=== PATIENT | male | born 1970 | race Caucasian/White ===

== ENCOUNTER 2022-09-21 15:36 | Inpatient (IN) | payer MEDICAID ==
[~2022-09-21] VITALS: Ht 170.2 cm; Wt 112.5 kg
[2022-09-21 15:45] VITALS: BP 141/96; PULSE 83; RESP 20; TEMP 98.6
[2022-09-21 16:31] LABS: BASOPHILS # (AUTO) 0.1 K/uL (0.00-0.22); BASOPHILS % (AUTO) 0.7 % (0.0-2.0); EOSINOPHILS # (AUTO) 0.3 K/uL (0-0.4); HEMATOCRIT 41.9 % (36-52); HEMOGLOBIN 14.2 g/dL (12.0-18.0); LYMPHOCYTES # (AUTO) 1.9 K/uL (2.0-11.5); LYMPHOCYTES % (AUTO) 22.1 % (20.5-51.1); MEAN CORPUSCULAR HEMOGLOBIN 28 pg (27-31); MEAN CORPUSCULAR HGB CONC 34 g/dL (33-37); MEAN CORPUSCULAR VOLUME 81.9 fL (80-94); MONOCYTES # (AUTO) 0.5 K/uL (0.8-1.0); NEUTROPHILS # (AUTO) 5.9 K/uL (1.8-7.7); NEUTROPHILS % (AUTO) 68.2 % (42.2-75.2); PLATELET COUNT (AUTO) 139 K/uL (140-450); RED BLOOD CELL COUNT(AUTO) 5.11 MIL/uL (4.20-6.10); RED CELL DISTRIBUTION WIDTH 15.6 % (11.6-13.7); WHITE BLOOD COUNT (AUTO) 8.7 K/uL (4.8-10.8)
[2022-09-21 16:49] LABS: ALBUMIN 3.7 g/dL (3.4-5.0); ANION GAP 11.2 (8-16); ASPARTATE AMINOTRANSFERASE 36 U/L (15-37); CARBON DIOXIDE 30.9 mmol/L (21-32); CHLORIDE 102 mmol/L (98-107); CREATININE 1.4 mg/dL (0.6-1.3); GFR ARICAN-AMERICAN 68 mL/min (>90); GLUCOSE 131 mg/dL (74-106); POTASSIUM 3.1 mmol/L (3.5-5.1); SODIUM SERUM 141 mmol/L (136-145); TOTAL BILIRUBIN 0.4 mg/dL (0.0-1.0); UREA NITROGEN, BLOOD 18 mg/dL (7-18)
--- NOTE | 2022-09-21 17:23 | NUR ---
PATIENT AMBULATED TO BED 5.
[2022-09-21] MEDS ORDERED: ASPIRIN 325 MG TAB PO ONE (17:35)
--- NOTE | 2022-09-21 17:42 | NUR ---
PLACED ON B/P, PULSE, MONITOR, PT DENIES CHEST PAIN AT THIS TIME, STATED RIGHT GROIN FEELS LIKE A LITTLE PINCH , SEEN AND EXAMINED BY ERMD.
[2022-09-21] MEDS ORDERED: NACL 0.9% 1,000 ML IV ONE (18:15)
[2022-09-21] MEDS ORDERED: NIFE30TE5 PO (18:20)
[2022-09-21] MEDS ORDERED: MORPHINE SULFATE 2 MG/ML SYR IVP PRN (18:30)
[2022-09-21] MEDS ORDERED: ATEN50TA8 PO (18:31)
--- NOTE | 2022-09-21 19:03 | NUR ---
TROP 174 ERMD AWARE
[2022-09-21] MEDS ORDERED: ONDANSETRON 4 MG/2 ML VIAL IM/IVP PRN (20:15)
[2022-09-21] MEDS ORDERED: DOCUSATE SODIUM 100 MG GELCAP PO PRN (20:15)
[2022-09-21] MEDS: NACL 0.9% 1,000 ML IV SCH ×2 (20:15→20:52)
[2022-09-21] MEDS ORDERED: ZOLPIDEM 5 MG TAB PO PRN (20:15)
[2022-09-21] MEDS ORDERED: HYDROcodone/APAP 7.5/325 MG 1 TAB PO PRN (20:15)
[2022-09-21] MEDS ORDERED: guaiFENesin DM 200/20 MG-10 ML 10 ML UDC PO PRN (20:15)
[2022-09-21] MEDS ORDERED: ACETAMINOPHEN 325 MG TAB PO PRN (20:15)
--- NOTE | 2022-09-21 20:19 | NUR ---
REPORT CALLED TO DASHA HAYWARD
--- NOTE | 2022-09-21 20:24 | NUR ---
Patient will be admitted to care of [facility]. Admited to TELE. Will go to [id number]. Belongings list completed. Report to SABINO HAYWARD.
[2022-09-21 20:26] VITALS: PULSE 74; PULSE 84; RESP 20; O2SAT 97
--- NOTE | 2022-09-21 20:26 | NUR ---
PT TRANSPORTED VIA GURNEY FROM ER. PT IS AAOX4 TAJIK SPEAKING BUT KNOWS SOME SERBIAN. PT IS ON RA NOT IN ANY DISTRESS. DENIES ANY PAIN. PT HAS IV ON LEFT AC 20 GAUGE. EDUCATED PT TRACTOR DRIVER TEAMSTER LIGHT SYSTEM AND ROOM ENVIRONMENT. POC DISCUSSED. WILL CONTINUE TO MONITOR THE PT.
[2022-09-21 20:38] LABS: PROTHROMBIN TIME 9.5 secs (10.8-13.4)
[2022-09-21 20:42] VITALS: BP 159/95; PULSE 83; PULSE 84; RESP 20; TEMP 98.9; O2SAT 97
[2022-09-21 20:43] LABS: FREE T4 (FREE THYROXINE) 0.97 ng/dL (0.76-1.46); MAGNESIUM 1.9 mg/dL (1.8-2.4); PHOSPHORUS 2.5 mg/dL (2.5-4.9); THYROID STIMULATING HORMONE 2.74 uIU/mL (0.34-3.74)
[2022-09-21] MEDS: amLODIPine 5 MG TAB PO SCH (20:46)
[2022-09-21] MEDS: POTASSIUM CHLORIDE 10 MEQ TABER PO PRN (21:17)
[2022-09-22] VITALS (7 sets, daily range): BP systolic 135–156; BP diastolic 67–93; PULSE 56–81; RESP 16–20; TEMP 97.1–98.4; O2SAT 96–100
[2022-09-22 00:10] LABS: BARBITURATE, URINE NEGATIVE ng/ml (NEG <=200); BENZODIAZEPINE, URINE NEGATIVE ng/mL (NEG <=200); CANNABINOID, URINE NEGATIVE ng/mL (NEG <=50); COCAINE, URINE NEGATIVE ng/mL (NEG <=300); OPIATE, URINE NEGATIVE ng/mL (NEG <=2000); PHENCYCLIDINE SCREEN,URINE NEGATIVE ng/mL (NEG <=25)
--- NOTE | 2022-09-22 00:31 | NUR ---
PT IS SLEEPING COMFORTABLY IN BED. NOT IN ANY DISTRESS. BREATHING EVEN AND UNLABORED. WILL CONTINUE TO MONITOR THE PT.
[2022-09-22 02:19] LABS: APPEARANCE,URINE CLEAR (CLEAR); BILIRUBIN,URINE NEGATIVE (NEGATIVE); BLOOD, URINE NEGATIVE (NEGATIVE); COLOR,URINE YELLOW (YELLOW); LEUKOCYTE ESTERASE ,URINE NEGATIVE (NEGATIVE); NITRITE, URINE NEGATIVE (NEGATIVE); PH,URINE 6.5 (5.0-9.0); UGLUCOSE NEGATIVE (NEGATIVE)
[2022-09-22] MEDS: NACL 0.9% 1,000 ML IV SCH ×2 (04:16→13:43)
--- NOTE | 2022-09-22 04:20 | NUR ---
IVF CHANGED. PT HAS NO COMPLAINS RIGHT NOW. DENIES ANY CHEST PAIN. WILL CONTINUE TO MONITOR THE PT.
[2022-09-22 06:35] LABS: ANION GAP 11.3 (8-16); CARBON DIOXIDE 29.8 mmol/L (21-32); CREATININE 1.1 mg/dL (0.6-1.3); POTASSIUM 3.1 mmol/L (3.5-5.1)
--- NOTE | 2022-09-22 07:14 | NUR ---
ENDORSED PT TO DAY SHIFT NURSE FOR CONTINUITY OF CARE. PT IS STABLE.
--- NOTE | 2022-09-22 07:15 | NUR ---
RECEIVED PT FROM FACILITY MANAGER HISTOLOGY NURSE FOR CONTINUITY OF CARE. PT IS IN BED AWAKE, AOX4. ABLE TO VERBALIZE NEEDS. RESPIRATIONS ARE EVEN AND UNLABORED ON RA. SKIN IS WARM AND DRY. IV ON THE LAC 20G INFUSING NS @125. CALL LIGHT WITHIN REACH. ALL SAFETY PRECAUTIONS IN PLACE.
[2022-09-22 07:51] LABS: BASOPHILS % (AUTO) 0.5 % (0.0-2.0); EOSINOPHILS # (AUTO) 0.3 K/uL (0-0.4); EOSINOPHILS % (AUTO) 3.8 % (0.0-4.0); HEMATOCRIT 40.7 % (36-52); HEMOGLOBIN 13.5 g/dL (12.0-18.0); LYMPHOCYTES # (AUTO) 2.7 K/uL (2.0-11.5); LYMPHOCYTES % (AUTO) 32.2 % (20.5-51.1); MEAN CORPUSCULAR HEMOGLOBIN 27 pg (27-31); MEAN CORPUSCULAR HGB CONC 33 g/dL (33-37); MONOCYTES # (AUTO) 0.6 K/uL (0.8-1.0); MONOCYTES % (AUTO) 6.7 % (1.7-9.3); NEUTROPHILS # (AUTO) 4.7 K/uL (1.8-7.7); NEUTROPHILS % (AUTO) 56.8 % (42.2-75.2); PLATELET COUNT (AUTO) 135 K/uL (140-450); RED BLOOD CELL COUNT(AUTO) 4.91 MIL/uL (4.20-6.10); WHITE BLOOD COUNT (AUTO) 8.3 K/uL (4.8-10.8)
[2022-09-22] MEDS: PANTOPRAZOLE 40 MG TABEC PO SCH (08:30)
[2022-09-22] MEDS: amLODIPine 5 MG TAB PO SCH (08:30)
--- NOTE | 2022-09-22 08:31 | NUR ---
ADMINISTERED ALL SCHEDULED MEDS. PT TOLERATING WELL.
--- NOTE | 2022-09-22 08:47 | NUR ---
PATIENT HAS BEEN SCREENED AND CATEGORIZED LOW NUTRITION RISK. PATIENT WILL BE SEEN WITHIN 7 DAYS OF ADMISSION. 09/28/[address]
--- NOTE | 2022-09-22 10:31 | NUR ---
DC [age] YRS OLD MALE PATIENT WAS ADMITTED FROM HOME WITH A DX OF ELEVATED TROPONIN. PATIENT HAS A HX OF HTN, KIDNEY STONE AND TIBIAL FRACTURE. TROP LEVEL 166,174,155 AND 163. US SCROTUM SHOWED SOFT TISSUE MASS. RAPID COVID TEST NEGATIVE. . ADMINISTERED IVF, AND CONTINUED HOME MEDS. CONSULTED WITH CARDIO AND NEPHRO. DC PLAN TO GO HOME WHEN STABLE CM TO FOLLOW
[2022-09-22] MEDS: FENOFIBRATE 48 MG TAB PO SCH (10:40)
[2022-09-22] MEDS: POTASSIUM CHLORIDE 10 MEQ TABER PO PRN (10:40)
[2022-09-22] MEDS ORDERED: MORPHINE SULFATE 2 MG/ML SYR IVP PRN (11:05)
--- NOTE | 2022-09-22 19:19 | NUR ---
RECEIVED REPORT FROM DAY SHIFT NURSE FOR CONTINUITY OF CARE. PT IS AWAKE, ALERT AND ORIENTED X4, MARTIN[place]QUA[place] SPEAKING BUT DOES UNDERSTAND [place]. CURRENTLY ON ROOM AIR WITH NO APPARENT SIGNS OF ACUTE DISTRESS NOTED. PATIENT IS AMBULATORY AND CONTINENT. IV SITE LOCATED AT LEFT AC 20 GAUGE, RUNNING NS @ 125 ML/HR. WILL MONITOR THROUGHOUT SHIFT.
--- NOTE | 2022-09-22 19:23 | NUR ---
ENDORSED PT TO MARKETING TRAFFIC COORDINATOR NURSE FOR CONTINUITY OF CARE. PT IS STABLE.
[2022-09-23] VITALS: BP 160/93; PULSE 68; PULSE 70; RESP 18; TEMP 96.9; O2SAT 97
--- NOTE | 2022-09-23 00:46 | NUR ---
Patient's Plan of Care was discussed and reviewed with ASSOCIATE BIOLOGICAL SALES: BRYAN
[2022-09-23] MEDS: hydrALAZINE 20 MG/ML VIAL IVP PRN ×2 (01:47→15:43)
--- NOTE | 2022-09-23 01:52 | NUR ---
PT BLOOD PRESSURE OF 160/93. DR SERNA WAS NOTIFIED AND AN ORDER FOR HYDRALAZINE 5 MG IVP ONE TIME DOSE WAS PLACED AND ADMINISTERED BY RN: SABINO.
--- NOTE | 2022-09-23 02:30 | NUR ---
PT ASLEEP AT THIS TIME. CHEST RISE AND FALL NOTED. RESPIRATIONS EVEN AND UNLABORED, NO APPARENT SIGNS OF ACUTE DISTRESS NOTED. WILL CONTINUE MONITORING THE PT.
[2022-09-23 04:00] VITALS: BP 156/94; PULSE 62; PULSE 64; RESP 20; TEMP 96.9; O2SAT 100
[2022-09-23] MEDS: NACL 0.9% 1,000 ML IV SCH ×2 (05:39→22:47)
--- NOTE | 2022-09-23 06:31 | NUR ---
NO ACUTE EVENTS OVERNIGHT, PT REMAINS ASLEEP. IV FLUID INFUSING WELL, NO SIGNS OF LEAKING/INFILTRATION NOTED. WILL ENDORSE TO DAY SHIFT NURSE IN STABLE CONDITION.
[2022-09-23 07:25] LABS: BASOPHILS % (AUTO) 0.6 % (0.0-2.0); EOSINOPHILS # (AUTO) 0.4 K/uL (0-0.4); EOSINOPHILS % (AUTO) 5.3 % (0.0-4.0); HEMATOCRIT 41.2 % (36-52); HEMOGLOBIN 13.6 g/dL (12.0-18.0); LYMPHOCYTES % (AUTO) 28.6 % (20.5-51.1); MEAN CORPUSCULAR HEMOGLOBIN 27 pg (27-31); MEAN CORPUSCULAR HGB CONC 33 g/dL (33-37); MEAN CORPUSCULAR VOLUME 82.7 fL (80-94); MONOCYTES # (AUTO) 0.3 K/uL (0.8-1.0); MONOCYTES % (AUTO) 4.9 % (1.7-9.3); NEUTROPHILS # (AUTO) 4.2 K/uL (1.8-7.7); NEUTROPHILS % (AUTO) 60.6 % (42.2-75.2); PLATELET COUNT (AUTO) 129 K/uL (140-450); RED BLOOD CELL COUNT(AUTO) 4.99 MIL/uL (4.20-6.10); RED CELL DISTRIBUTION WIDTH 15.8 % (11.6-13.7); WHITE BLOOD COUNT (AUTO) 6.9 K/uL (4.8-10.8)
[2022-09-23 07:27] LABS: ANION GAP 9.2 (8-16); CARBON DIOXIDE 30.1 mmol/L (21-32); CREATININE 1.1 mg/dL (0.6-1.3); POTASSIUM 3.3 mmol/L (3.5-5.1)
--- NOTE | 2022-09-23 07:30 | NUR ---
RECEIVED PT FROM ENGRAVER STEEL PLATE NURSE FOR CONTINUITY OF CARE. PT IS IN BED AWAKE, ABLE TO VERBALIZE NEEDS. RESPIRATIONS EVEN AND UNLABORED ON RA. DENIES PAIN. CALL LIGHT WITHIN REACH. ALL SAFETY PRECAUTIONS IN PLACE.
[2022-09-23 08:00] VITALS: BP 151/89; PULSE 65; PULSE 81; RESP 18; TEMP 97.5; O2SAT 97
[2022-09-23 08:08] LABS: T4 (THYROXINE) 9.1 ug/dL (4.5-12.0)
[2022-09-23] MEDS: POTASSIUM CHLORIDE 10 MEQ TABER PO PRN (08:11)
[2022-09-23] MEDS: FENOFIBRATE 48 MG TAB PO SCH (08:11)
[2022-09-23] MEDS: PANTOPRAZOLE 40 MG TABEC PO SCH (08:11)
[2022-09-23] MEDS: amLODIPine 5 MG TAB PO SCH (08:12)
--- NOTE | 2022-09-23 08:13 | NUR ---
ADMINISTERED ALL SCHEDULED MEDS AND PRN KDUR. PT TOLERATING WELL.
[2022-09-23 12:00] VITALS: BP 155/95; PULSE 75; PULSE 79; RESP 18; TEMP 97.3; O2SAT 97
[2022-09-23 16:00] VITALS: BP 162/102; PULSE 78; PULSE 86; RESP 18; TEMP 98; O2SAT 98
[2022-09-23] MEDS ORDERED: lisinopriL 10 MG TAB PO SCH (17:00)
--- NOTE | 2022-09-23 19:15 | NUR ---
ENDORSED PT TO CAR VARNISHER NURSE FOR CONTINUITY OF CARE. PT IS STABLE.
--- NOTE | 2022-09-23 19:23 | NUR ---
RECEIVED REPORT FROM DAY SHIFT NURSE FOR CONTINUITY OF CARE. PT IS AWAKE, AMBULATORY, ALERT AND ORIENTED X4. PT STILL STABLE ON ROOM AIR AT THIS TIME. IV SITE TO LEFT AC 20 GAUGE STILL INTACT AND PATENT. POC AND GOALS FOR TONIGHT WERE DISCUSSED WITH PATIENT. CALL LIGHT PLACED WITHIN REACH, SAFETY MEASURES IN PLACE.
[2022-09-23 20:00] VITALS: BP 155/97; PULSE 87; PULSE 89; RESP 18; TEMP 98.6; O2SAT 98
--- NOTE | 2022-09-23 20:00 | NUR ---
Patient's Plan of Care was discussed and reviewed with JOANN: LISANDRO
--- NOTE | 2022-09-23 20:05 | NUR ---
SCHEDULED MEDICATIONS ADMINISTERED WITH NO COMPLICATIONS, NO DISTRESS NOTED. WILL CONTINUE TO MONITOR.
[2022-09-23] MEDS: NIFEdipine 60 MG TABER PO SCH (20:06)
[2022-09-23] MEDS: KCL 20 MEQ IN 100 mL PREMIX 100 ML IV SCH ×2 (21:00→23:00)
--- NOTE | 2022-09-23 21:50 | NUR ---
PATIENT CURRENT POTASSIUM LEVEL OF 3.3 OFF 6/10 AM LABS. DAY SHIFT NURSE ADMINISTERED POTASSIUM 40 MEQ PO. PT HAS ORDER FOR KCL 20 MEQ IV Q2H STARTING AT 2100. DR. SERNA WAS CONTACTED TO CLARIFY THIS ORDER. DR SERNA ORDERED TO HOLD THE POTASSIUM IV AND WAIT FOR THE 6/11 AM LAB RESULTS. ENDORSED TO RN: TODD WHO NON ADMINISTERED THE MEDICATION. I RETURNED THE MEDICATION TO THE [facility].
[2022-09-24] VITALS (9 sets, daily range): BP systolic 122–144; BP diastolic 77–95; PULSE 74–89; RESP 18; TEMP 96.8–99.1; O2SAT 95–100
[2022-09-24] MEDS: KCL 20 MEQ IN 100 mL PREMIX 100 ML IV SCH ×5 (01:00→08:46)
--- NOTE | 2022-09-24 02:06 | NUR ---
PT SLEEPING COMFORTABLY AT THIS TIME. NO SIGNS OF DISTRESS NOTED, RESPIRATIONS EVEN AND UNLABORED. WILL CONTINUE TO MONITOR.
[2022-09-24 07:01] LABS: ANION GAP 11.3 (8-16); CARBON DIOXIDE 27.6 mmol/L (21-32)
--- NOTE | 2022-09-24 07:02 | NUR ---
NO ACUTE EVENTS OVERNIGHT, PT SLEPT WELL THROUGHOUT SHIFT. LATEST VITAL SIGNS WNL. IV STILL INTACT AND INFUSING WELL. AWAITING AM LABS FOR POTASSIUM LEVELS.
[2022-09-24 07:03] LABS: POTASSIUM 2.9 mmol/L (3.5-5.1)
[2022-09-24 07:10] LABS: BASOPHILS % (AUTO) 0.7 % (0.0-2.0); EOSINOPHILS # (AUTO) 0.3 K/uL (0-0.4); EOSINOPHILS % (AUTO) 4.5 % (0.0-4.0); HEMATOCRIT 41.2 % (36-52); HEMOGLOBIN 13.6 g/dL (12.0-18.0); LYMPHOCYTES # (AUTO) 1.9 K/uL (2.0-11.5); LYMPHOCYTES % (AUTO) 26.9 % (20.5-51.1); MEAN CORPUSCULAR HEMOGLOBIN 27 pg (27-31); MEAN CORPUSCULAR HGB CONC 33 g/dL (33-37); MEAN CORPUSCULAR VOLUME 82.2 fL (80-94); MONOCYTES # (AUTO) 0.4 K/uL (0.8-1.0); MONOCYTES % (AUTO) 5.8 % (1.7-9.3); NEUTROPHILS # (AUTO) 4.5 K/uL (1.8-7.7); NEUTROPHILS % (AUTO) 62.1 % (42.2-75.2); PLATELET COUNT (AUTO) 131 K/uL (140-450); RED BLOOD CELL COUNT(AUTO) 5.02 MIL/uL (4.20-6.10); RED CELL DISTRIBUTION WIDTH 15.8 % (11.6-13.7); WHITE BLOOD COUNT (AUTO) 7.2 K/uL (4.8-10.8)
[2022-09-24] MEDS: POTASSIUM CHLORIDE 10 MEQ TABER PO PRN (07:53)
[2022-09-24] MEDS: FENOFIBRATE 48 MG TAB PO SCH (08:46)
[2022-09-24] MEDS: PANTOPRAZOLE 40 MG TABEC PO SCH (08:47)
[2022-09-24] MEDS: carvediloL 6.25 MG TAB PO SCH (08:47)
--- NOTE | 2022-09-24 09:44 | NUR ---
NURSES NOTE PATIENT RECEIVED AT BED SIDE , A/OX4 , VSS , ON IV FLUID N/S 60CC/H , SINUS RHYTHM ON MONITOR AMBULATORY , CONTINENT X2 GI AND , SKIN INTACT , NO COMPLAIN AT THIS TIME , ON CARDIAC DIET PATIENT STILL UNDER OBSERVE .
[2022-09-24] MEDS: NACL 0.9% 1,000 ML IV SCH (14:55)
--- NOTE | 2022-09-24 15:23 | NUR ---
UPDATE NURSES NOTE PATIENT GOOD WAITING FOR CARDIOLOGY TO CLEAR SAM NURSES NOTE PATIENT RECEIVED AT BED SIDE , A/OX4 , VSS , ON IV FLUID N/S 60CC/H , SINUS RHYTHM ON MONITOR AMBULATORY , CONTINENT X2 GI AND , SKIN INTACT , NO COMPLAIN AT THIS TIME , ON CARDIAC DIET SAFETY PROACTION IN PLACE , SIDE RAILS UP X3 , BED IN LOWER POSITION , CALL LIGHT WITHIN REACH ,PATIENT STILL UNDER OBSERVE .
--- NOTE | 2022-09-24 19:02 | NUR ---
SHIFT REPORT GIVEN TO LEDY HAYWARD ALL HIS QUESTION ANSWERED .
--- NOTE | 2022-09-24 20:50 | NUR ---
SCHEDULED MEDICATIONS ADMINISTERED WITH NO COMPLICATIONS. WILL CHECK PATIENTS BLOOD PRESSURE AT 0000 TO MONITOR EFFECTIVENESS OF MEDICATION.
[2022-09-24] MEDS: NIFEdipine 60 MG TABER PO SCH (20:56)
[2022-09-25] VITALS (8 sets, daily range): BP systolic 118–130; BP diastolic 73–84; PULSE 71–89; RESP 18; TEMP 97.4–97.9; O2SAT 96–100
[2022-09-25 06:14] LABS: BASOPHILS % (AUTO) 0.5 % (0.0-2.0); EOSINOPHILS # (AUTO) 0.3 K/uL (0-0.4); EOSINOPHILS % (AUTO) 3.5 % (0.0-4.0); HEMOGLOBIN 13.5 g/dL (12.0-18.0); LYMPHOCYTES # (AUTO) 2.1 K/uL (2.0-11.5); LYMPHOCYTES % (AUTO) 27.1 % (20.5-51.1); MEAN CORPUSCULAR HEMOGLOBIN 27 pg (27-31); MEAN CORPUSCULAR HGB CONC 33 g/dL (33-37); MEAN CORPUSCULAR VOLUME 82.9 fL (80-94); MONOCYTES # (AUTO) 0.4 K/uL (0.8-1.0); MONOCYTES % (AUTO) 5.3 % (1.7-9.3); NEUTROPHILS # (AUTO) 4.9 K/uL (1.8-7.7); NEUTROPHILS % (AUTO) 63.6 % (42.2-75.2); PLATELET COUNT (AUTO) 136 K/uL (140-450); RED BLOOD CELL COUNT(AUTO) 4.95 MIL/uL (4.20-6.10); WHITE BLOOD COUNT (AUTO) 7.7 K/uL (4.8-10.8)
[2022-09-25 06:19] LABS: ANION GAP 10.3 (8-16); CARBON DIOXIDE 28.9 mmol/L (21-32); CREATININE 1.1 mg/dL (0.6-1.3); POTASSIUM 3.2 mmol/L (3.5-5.1)
--- NOTE | 2022-09-25 07:21 | NUR ---
NURSES NOTE PATIENT RECEIVED AT BED SIDE , A/OX4 , VSS , ON ROOM AIR , SINUS RHYTHM ON MONITOR , ON CARDIAC DIET SAFETY PROACTION IN PLACE , SIDE RAILS UPX3 , BED IN LOWER POSITION , CALL LIGHT WITHIN REACH AMBULATORY INDEPENDENT , ON IV FLUID N/S 60CC/H , NO COMPLAIN MAT THIS TIME WAITING FOE CARDIAC ECHO , STILL UNDER OBSERVE .
[2022-09-25] MEDS: NACL 0.9% 1,000 ML IV SCH (07:35)
--- NOTE | 2022-09-25 07:54 | NUR ---
NO ACUTE EVENTS OVERNIGHT, ENDORSED TO DAY SHIFT NURSE FOR CONTINUITY OF CARE.
[2022-09-25] MEDS: POTASSIUM CHLORIDE 10 MEQ TABER PO PRN (08:05)
[2022-09-25] MEDS: FENOFIBRATE 48 MG TAB PO SCH (08:06)
[2022-09-25] MEDS: carvediloL 6.25 MG TAB PO SCH (08:06)
[2022-09-25] MEDS: PANTOPRAZOLE 40 MG TABEC PO SCH (08:06)
[2022-09-25] MEDS ORDERED: CARV6.252 PO (12:36)
[2022-09-25] MEDS ORDERED: TRI48 PO (12:36)
[2022-09-25] MEDS ORDERED: NIFE60TA39 PO (12:36)
--- NOTE | 2022-09-25 13:16 | NUR ---
PATIENT HAS DISCHARGE ORDER TO GO HOME , Ange NEGRO/MARYANN , DISCHARGE PACKET EXPLAIN FOR PATIENT , PATIENT VERBALIZED UNDERSTANDING OF GIVEN , ALL HIS DOCUMENT SIGNED AND PLACED ON CHART , IV AND HEART MONITOR REMOVED ASSISTED TO MAIN LOBBY AND PICKED UP BY HIS FAMILY , EDUCATION ABOUT NEW MEDS GIVEN .
== END 2022-09-25 13:05 | disposition home or self-care (01) | DRG 501 ==
LOC: MED 15:36 → MTU 18:15
PROVIDERS: ADMIT Family Medicine; ATTEND Family Medicine
DX: N43.3 Hydrocele, unspecified (principal); N17.0 Acute kidney failure with tubular necrosis; I21.A1 Myocardial infarction type 2; I86.1 Scrotal varices; D69.6 Thrombocytopenia, unspecified; F43.9 Reaction to severe stress, unspecified; Z20.822 Contact with and (suspected) exposure to COVID-19; E78.2 Mixed hyperlipidemia; I10 Essential (primary) hypertension; K46.9 Unspecified abdominal hernia without obstruction or gangrene; Z87.442 Personal history of urinary calculi; Z79.899 Other long term (current) drug therapy; Z82.49 Family history of ischemic heart disease and other diseases of the circulatory system
CPT/HCPCS: 36415; 76770; 76870; 80048; 80053; 80305; 81003; 82150; 83036; 83690; 83735; 83880; 84100; 84436; 84439; 84443; 84479; 84484; 85025; 85379; 85610; 85730; 87081; 93005; 99285; J0360; J3480; Q0092